=== PATIENT | male | born 1985 | race Caucasian/White ===

== ENCOUNTER 2022-10-05 18:06 | Emergency (ER) | payer BC, SELFPAY ==
[2022-10-05 18:09] VITALS: BP 135/87; PULSE 120; RESP 16; TEMP 36.6; O2SAT 95; BMI 30.3
--- NOTE | 2022-10-05 18:34 | CRLHL7_ITS ---
For Patients: As a result of the Century Cures Act, medical imaging exams and procedure reports are released immediately into your electronic medical record. You may view this report before your referring provider. If you have questions, please contact your health care provider. INDICATION: FALL,LEFT GLUTEAL HEMATOMA TECHNIQUE: CT abdomen and pelvis acquired with 98 cc Isovue 370 IV contrast. COMPARISON: None. FINDINGS: Lower chest: The visualized lower lungs are aerated. No pleural or pericardial effusion. ABDOMEN: Liver: Normal enhancement of the liver where visualized. Portions of the liver are excluded off the superior field of view. Likely diffuse hepatic steatosis. Gallbladder and biliary: Contracted gallbladder. Normal caliber bile ducts. Spleen: Normal size and enhancement. Pancreas: Normal enhancement without peripancreatic inflammatory changes or ductal dilatation. Adrenal glands: Normal adrenal glands. Kidneys and ureters: Normal enhancement. No radio-opaque calculi. No hydroureteronephrosis. GI tract: The stomach is relatively decompressed. Normal caliber small and large bowel loops. Normal appendix. Colonic diverticulosis without diverticulitis. Vascular structures: Normal caliber abdominal aorta. Lymph nodes: No lymphadenopathy in the abdomen or pelvis by size criteria. Peritoneum: No free air, free fluid, or focal drainable fluid collection. PELVIS: Genitourinary system: Urinary bladder is relatively decompressed. Normal size prostate. SKELETAL STRUCTURES AND SOFT TISSUES: Left sandhya abdomen and hemipelvis subcutaneous edema left high attenuation subcutaneous fluid collection abutting the left gluteus peter measuring 3.6 x 11.1 x 14.4 cm. No discrete acute displaced fracture. IMPRESSION: Left subcutaneous hematoma measuring up to 14 cm abutting the gluteus peter. Please note that all CT scans at this facility use dose modulation, iterative reconstruction, and/or weight-based dosing when appropriate to reduce radiation dose to as low as reasonably achievable. Dictated by Kenney Hardin MD @ 10/05/2022 8:26:36 PM (Electronically Signed)
--- NOTE | 2022-10-05 18:37 | ED.GENADULT ---
HPI - General Adult General Date Seen: 10/05/22 Chief complaint: Back Injury/Pain Stated complaint: Fell on . Pain in lowerback, tailbone Time Seen by Provider: 10/05/22 18:14 Source: patient Mode of arrival: ambulatory Limitations: no limitations History of Present Illness HPI narrative: Patient is a 37-year-old male who comes in after stating that he fell from standing height landing on his tailbone/gluteal area on night, presents to the ER on Thursday for evaluation of bruising and swelling. He says initially he had an indentation in that area but by the time he woke up the next morning he had a significant lump. He has now developed bruising, has pain with any movement of his leg although he is able to bear weight. He does not have midline back pain. Denies other injuries or complaints. Does note that he has a history of alcohol abuse was in treatment in May and says he is not drinking as heavily now. He does take naltrexone as a deterrent. Does not take any anticoagulation. Related Data Home Medications Medication Instructions Recorded Confirmed amlodipine .ROUTE 10/05/22 escitalopram oxalate .ROUTE 10/05/22 losartan .ROUTE 10/05/22 naltrexone .ROUTE 10/05/22 Allergies Allergy/AdvReac Type Severity Reaction Status Date / Time No Known Drug Allergies Allergy Verified 10/05/22 18:13 Review of Systems Status of ROS: Reports: 6 or more systems reviewed and unremarkable except as noted in History and below PFSH PFS Social History Smoking Status: Current every day smoker How often do you have a drink containing alcohol: 4 or more times a week How many standard drinks containing alcohol do you have on a typical day: 3 or 4 AUDIT-C Alcohol total score: 5 Non-prescribed substance use: denies use Exam Narrative: Exam Narrative: Vital signs as noted above. In general, an alert, well-appearing patient. Head: Normocephalic, atraumatic. Eyes: Pupils are equal reactive. Extraocular movements are full. Conjunctivae are normal. ENT: Mucous membranes are moist. Throat is normal. Neck: Supple without lymphadenopathy. Heart: Tachycardic and regular. Lungs: Clear bilaterally. No increased work of breathing, crackles or wheezes. Abdomen: Soft and nontender. No organomegaly. Extremities: Well perfused. No edema. No calf tenderness. Pulses intact. Back: He has extensive bruising over both gluteal areas. He has a large hematoma on the right which is fluctuant. I do not see any other surrounding erythema although with the bruising it would probably be difficult to tell. Remainder of his back is nontender. Neurologic: Patient is alert and oriented to person and place. Speech is fluent. Face is symmetric. Moves all extremities equally. Affect: Normal. Skin: Warm and dry. Well perfused. Const: Vital Signs, click to edit/add: Vital Signs - 24 hr 10/05/22 18:09 10/05/22 19:07 Temperature 97.9 F Pulse Rate [Pulse Oximeter] 120 H 100 Respiratory Rate 16 20 Blood Pressure [Ri ght Upper Arm] 135/87 130/90 H Pulse Oximetry 95 95 Oxygen Delivery Me thod Room Air Room Air Documenting provider has reviewed patient's vital signs: yes Course Course Hospital Course: I recommended that we do a CT scan given the size of the hematoma and extensiveness of bruising just to make sure there is not any other injury underneath. He is afebrile, no systemic complaints, my suspicion for infection is relatively low. Will check a CBC and an INR as well. I discussed pain control with him. He says he has never had a problem with narcotics, is not concerned about using something with addictive potential. He has been taking Tylenol at home and does feel he would benefit from something stronger. Oral oxycodone ordered. CBC shows a white blood cell count of 11 point 9, hemoglobin of 12.8. Platelets normal. Coags normal. Pain is improved with oxycodone. I reviewed his CT scan, he has a large hematoma measuring 11.5 cm by 4 cm, radiology read notes this to be up to 14 cm, no fracture, no other abnormalities noted. I did talk with Dr. Montero about this patient, at this time she would recommend conservative treatment although if in a couple weeks he is not resolving follow-up with surgery clinic and consideration could be given to draining this. For now, bike shorts for compression, ice, ibuprofen plus Tylenol 3 times daily, oxycodone for uncontrolled pain. Do not mix this with alcohol. For symptoms of infection such as fever, increasing pain, redness, return to the emergency department. Vital Signs Vital signs: Initial Vital Signs Temperature 97.9 F 10/05/22 18:09 Temperature Source Temporal Artery Scan 10/05/22 18:09 Pulse Rate 120 H 10/05/22 18:09 Respiratory Rate 16 10/05/22 18:09 Blood Pressure 135/87 10/05/22 18:09 Blood Pressure Mean 103 10/05/22 18:09 Blood Pressure Position Supine 10/05/22 18:09 Pulse Oximetry 95 10/05/22 18:09 Oxygen Delivery Method Room Air 10/05/22 18:09 Vital Signs Temperature 97.9 F 10/05/22 18:09 Pulse Rate 120 H 10/05/22 18:09 Respiratory Rate 16 10/05/22 18:09 Blood Pressure 135/87 10/05/22 18:09 Pulse Oximetry 95 10/05/22 18:09 Oxygen Delivery Method Room Air 10/05/22 18:09 Temperature 97.9 F 10/05/22 18:09 Pulse Rate 100 10/05/22 19:07 Respiratory Rate 20 10/05/22 19:07 Blood Pressure 130/90 H 10/05/22 19:07 Pulse Oximetry 95 10/05/22 19:07 Oxygen Delivery Method Room Air 10/05/22 19:07 Medical Decision Making Lab Data Labs: Lab Results 10/05/22 Range/Units 18:46 WBC 11.94 H (4.50-11.00) K/uL RBC 3.80 L (4.30-5.90) m/uL Hgb 12.8 L (13.5-17.5) gm/dL Hct 36.6 L (37.0-53.0) % MCV 96 (80-100) fL MCH 34 (26-34) pg MCHC 35 (32-36) gm/dL RDW Coeff of Radha 12.6 (11.5-15.5) % Plt Count 287 (140-440) K/uL Neut % (Auto) 63.6 (42.0-72.0) % Lymph % (Auto) 25.0 (20-44) % [place] % (Auto) 8.9 (0.0-11.0) % Eos % (Auto) 0.8 (0.0-7.0) % Baso % (Auto) 0.4 (0.0-3.0) % Neut # (Auto) 7.60 H (1.7-7.0) K/uL Lymph # (Auto) 3.00 H (0.90-2.90) K/uL [place] # (Auto) 1.10 H (0.00-0.90) K/UL Eos # (Auto) 0.10 (0.00-0.50) K/uL Baso # (Auto) 0.00 (0.00-0.30) K/uL INR 0.91 (0.91-1.10) APTT 28 (23-33) Seconds Discharge Plan Discharge Clinical Impression: Hematoma and contusion Patient Disposition: Home, Self-Care Condition: Stable Instructions: Hematoma (ED) Additional Instructions: Ibuprofen 400 mg plus Tylenol 1000 mg 3 times daily with food. Oxycodone if needed over the next day or 2 for more severe pain. I discussed your case with the on-call surgeon; she would recommend wearing bike shorts to help provide some mild compression to this area. You can use ice as needed. As we discussed, it will likely take a couple of weeks for this to start to resolve. If you find after a couple of weeks there is no change or improvement, follow-up with the general surgery clinic. [phone] if you need to schedule. If at any time you have acute worsening pain, significant redness, fevers or other acute changes, return to the emergency department for re-evaluation. Prescriptions: No Action losartan .ROUTE amlodipine .ROUTE naltrexone .ROUTE escitalopram oxalate .ROUTE Stand Alone Forms: [facility] Info Instructions
[2022-10-05] MEDS: OXYCODONE 5 MG TABLET PO (18:41)
[2022-10-05 18:54] LABS: Basophils Percent Auto 0.4 % (0.0-3.0); Eosinophils Percent Auto 0.8 % (0.0-7.0); Hematocrit 36.6 % (37.0-53.0); Hemoglobin* 12.8 gm/dL (13.5-17.5); Immature Granulocytes Pct Auto 1.3 %; Mean Corpuscular HGB Conc 35 gm/dL (32-36); Mean Corpuscular Hemoglobin 34 pg (26-34); Mean Corpuscular Volume 96 fL (80-100); Monocytes Percent Auto 8.9 % (0.0-11.0); Neutrophils Percent Auto 63.6 % (42.0-72.0); Platelet Count* 287 K/uL (140-440); RDW Coefficient of Variation % 12.6 % (11.5-15.5); White Blood Count* 11.94 K/uL (4.50-11.00)
[2022-10-05 18:56] LABS: Slide Review Reflex No
[2022-10-05 19:07] VITALS: BP 130/90; PULSE 100; RESP 20; O2SAT 95
[2022-10-05 19:19] LABS: INR 0.91 (0.91-1.10); Partial Thromboplastin Time* 28 Seconds (23-33); Prothrombin Time 12.8 Seconds
[2022-10-05] MEDS: 0.9 % SODIUM CHLORIDE 1000 ml 1,000 ML IV (19:55)
[2022-10-05] MEDS: NICOTINE 21 MG PATCH 1 PATCH TRANSDERMA (19:59)
== END 2022-10-05 20:53 | disposition home or self-care (01) ==
PROVIDERS: Emergency Provider Emergency Medicine
DX: S30.0XXA Contusion of lower back and pelvis, initial encounter (principal); W17.89XA Other fall from one level to another, initial encounter
CPT/HCPCS: 36415; 74177; 85025; 85610; 85730; 99284; A9270; J7030; Q9967; S4990